=== PATIENT | female | born 1935 | race Caucasian/White ===

== ENCOUNTER 2016-12-28 14:11 | Inpatient (IN) | payer MEDICARE, OTHER ==
[~2016-12-28] VITALS: Ht 170.2 cm; Wt 79.8 kg
[~2016-12-28 14:11] MED LIST: AMLODIPINE PO; HCTZ PO
[2016-12-28] MEDS ORDERED: KETOROLAC 30MG/ML VIAL IV STA (15:32)
[2016-12-28] MEDS ORDERED: VANCOMYCIN 1 G PREMIX 200 ML IV ONE (15:45)
[2016-12-28] MEDS ORDERED: PIPERACILLIN/TAZ 3.375G PREMIX 50 ML IV ONE (15:45)
[2016-12-28 16:15] LABS: BASOPHILS % 0.5 % (0.0-2.0); EOSINOPHILS % 0.4 % (0.0-5.0); HEMATOCRIT. 43.1 % (36.0-48.0); HEMOGLOBIN. 14.9 g/dL (12.0-16.0); LYMPHOCYTES % 17.3 % (20.0-50.0); MEAN CORPUSCULAR HEMOGLOBIN 29.6 pg (28.0-32.0); MEAN CORPUSCULAR VOLUME 85.7 fL (81.0-99.0); MEAN PLATELET VOLUME 8.3 fl (7.4-10.4); MONOCYTES % 14.2 % (2.0-8.0); NEUTROPHILS % 67.6 % (40.0-76.0); PLATELET 229 x1000/uL (130-400); RED BLOOD CELL COUNT 5.03 mill/uL (4.2-5.4); RED CELL DISTRIBUTION WIDTH 13.4 % (11.6-14.6)
[2016-12-28 16:19] LABS: CHLORIDE 107 mEq/L (98-107)
[2016-12-28 16:20] LABS: INR 1.1; PROTHROMBIN TIME 11.4 sec (9.4-11.6)
[2016-12-28 16:27] LABS: CARBON DIOXIDE 28 mEq/L (21-32)
[2016-12-28] MEDS ORDERED: SODIUM CHLORIDE 0.9% 1000ML BAG (SEPSIS BOLUS) IV ONE (17:30)
[2016-12-28 17:50] LABS: CLARITY URINE TURBID (CLEAR); COLOR URINE YELLOW (YELLOW); GLUCOSE URINE NEGATIVE (NEGATIVE); KETONES URINE NEGATIVE (NEGATIVE); LEUKOCYTE ESTERASE URINE 2+ (NEGATIVE); NITRITE URINE NEGATIVE (NEGATIVE); OCCULT BLOOD URINE 2+ (NEGATIVE); PROTEIN URINE 3+ (NEGATIVE); SPECIFIC GRAVITY URINE 1.017 (1.005-1.030); UROBILINOGEN URINE 0.2 E.U./dL (0.2-1.0)
[2016-12-28] MEDS ORDERED: LORAZEPAM 2MG/ML CPJ IV ONE ×2 (18:15→19:30)
[2016-12-28] MEDS ORDERED: ZIPRASIDONE MESYLATE 20MG/VIAL IM ONE (19:30)
[2016-12-28] MEDS ORDERED: OXCA300T4 PO (22:44)
[2016-12-28] MEDS ORDERED: AMLO10TA80 PO (22:44)
[2016-12-28] MEDS ORDERED: RIVA1PAT9 TD (22:44)
[2016-12-28] MEDS ORDERED: FISH1CAP34 PO (22:44)
[2016-12-28] MEDS ORDERED: ATOR20TA65 PO (22:44)
[2016-12-28] MEDS ORDERED: FERR325T6 PO (22:44)
[2016-12-28] MEDS ORDERED: OMEP20CA10 PO (22:44)
[2016-12-28] MEDS ORDERED: METO100T9 PO (22:44)
[2016-12-28 23:00] VITALS: BP 98/72
[2016-12-29] VITALS: BP 149/77
[2016-12-29] MEDS ORDERED: LORAZEPAM 2MG/ML CPJ IV PRN (00:45)
[2016-12-29] MEDS ORDERED: ACETAMINOPHEN 325MG TABLET PO PRN (00:45)
[2016-12-29] MEDS: OLANZAPINE 10MG TABLET PO SCH ×2 (01:22→09:47)
[2016-12-29] MEDS ORDERED: LEVOFLOXACIN 500MG PREMIX 100 ML IV NR (03:00)
[2016-12-29 04:00] VITALS: BP 146/96
[2016-12-29] MEDS: SODIUM CHLORIDE 0.9% INJ 3ML FLUSH IVF SCH ×3 (05:30→21:22)
[2016-12-29 07:29] LABS: BASOPHILS % 0.5 % (0.0-2.0); EOSINOPHILS % 0.3 % (0.0-5.0); HEMOGLOBIN. 14.8 g/dL (12.0-16.0); LYMPHOCYTES % 7.6 % (20.0-50.0); MEAN CORPUSCULAR HEMOGLOBIN 29.6 pg (28.0-32.0); MEAN CORPUSCULAR VOLUME 85.8 fL (81.0-99.0); MEAN PLATELET VOLUME 8.7 fl (7.4-10.4); MONOCYTES % 6.7 % (2.0-8.0); NEUTROPHILS % 84.9 % (40.0-76.0); PLATELET 187 x1000/uL (130-400); RED BLOOD CELL COUNT 5.01 mill/uL (4.2-5.4); RED CELL DISTRIBUTION WIDTH 13.2 % (11.6-14.6)
[2016-12-29 08:00] VITALS: BP 147/81
[2016-12-29 08:08] LABS: VITAMIN B12 SERUM 334 pg/mL (211-911)
[2016-12-29 08:10] LABS: TROPONIN I 0.04 ng/mL (0.00-0.04)
[2016-12-29] MEDS: ASPIRIN 325MG EC TABLET PO SCH (09:47)
[2016-12-29] MEDS: OMEPRAZOLE 20MG CAPSULE EXTENDED RELEASE PO SCH (09:47)
[2016-12-29] MEDS: OXCARBAZEPINE 300MG TABLET PO SCH (09:48)
[2016-12-29] MEDS: METOPROLOL TARTRATE 50MG TABLET PO SCH ×2 (09:48→21:22)
[2016-12-29] MEDS: AMLODIPINE 10MG TABLET PO SCH (09:48)
[2016-12-29] MEDS: ENOXAPARIN 40MG/0.4ML SYR SUBCUT SCH (09:48)
[2016-12-29 12:00] VITALS: BP 135/65
[2016-12-29] MEDS: CEFTRIAXONE 1 G PREMIX 50 ML IV SCH (15:50)
[2016-12-29 16:00] VITALS: BP 148/88
[2016-12-29 20:00] VITALS: BP 147/93
[2016-12-29] MEDS: ATORVASTATIN CALCIUM 20MG TABLET PO SCH (21:17)
[2016-12-30] VITALS: BP 152/71
[2016-12-30] MEDS ORDERED: LEVOFLOXACIN 250MG PREMIX 50 ML IV SCH (03:00)
[2016-12-30 04:00] VITALS: BP 136/77
[2016-12-30] MEDS: SODIUM CHLORIDE 0.9% INJ 3ML FLUSH IVF SCH ×2 (05:36→14:45)
[2016-12-30 05:39] LABS: HEMATOCRIT. 46.6 % (36.0-48.0); HEMOGLOBIN. 15.8 g/dL (12.0-16.0); MEAN CORPUSCULAR HEMOGLOBIN 29.3 pg (28.0-32.0); MEAN CORPUSCULAR VOLUME 86.5 fL (81.0-99.0); MEAN PLATELET VOLUME 8.6 fl (7.4-10.4); PLATELET 215 x1000/uL (130-400); RED BLOOD CELL COUNT 5.38 mill/uL (4.2-5.4); RED CELL DISTRIBUTION WIDTH 13.5 % (11.6-14.6)
[2016-12-30 08:00] VITALS: BP 151/94
[2016-12-30] MEDS: AMLODIPINE 10MG TABLET PO SCH (09:54)
[2016-12-30] MEDS: ENOXAPARIN 40MG/0.4ML SYR SUBCUT SCH (09:54)
[2016-12-30] MEDS: METOPROLOL TARTRATE 50MG TABLET PO SCH ×2 (09:54→21:26)
[2016-12-30] MEDS: ASPIRIN 325MG EC TABLET PO SCH (09:54)
[2016-12-30] MEDS: OMEPRAZOLE 20MG CAPSULE EXTENDED RELEASE PO SCH (09:54)
[2016-12-30] MEDS: OLANZAPINE 5MG TABLET PO SCH (09:54)
[2016-12-30] MEDS: OXCARBAZEPINE 300MG TABLET PO SCH (09:54)
[2016-12-30 12:00] VITALS: BP 130/61
[2016-12-30 13:10] LABS: PLATELET ESTIMATE NORMAL
[2016-12-30] MEDS: CEFTRIAXONE 1 G PREMIX 50 ML IV SCH (15:06)
[2016-12-30 16:00] VITALS: BP 131/66
[2016-12-30 20:00] VITALS: BP 142/67
[2016-12-30] MEDS: DEXT 5%/0.45% NACL 1000ML 1,000 ML IV SCH (21:25)
[2016-12-30] MEDS: ATORVASTATIN CALCIUM 20MG TABLET PO SCH (21:26)
[2016-12-30 22:29] LABS: BASOPHILS % 0.4 % (0.0-2.0); EOSINOPHILS % 3.5 % (0.0-5.0); HEMATOCRIT. 40.8 % (36.0-48.0); LYMPHOCYTES % 16.8 % (20.0-50.0); MEAN CORPUSCULAR HEMOGLOBIN 29.2 pg (28.0-32.0); MEAN CORPUSCULAR VOLUME 85.4 fL (81.0-99.0); MEAN PLATELET VOLUME 8.9 fl (7.4-10.4); MONOCYTES % 6.7 % (2.0-8.0); NEUTROPHILS % 72.6 % (40.0-76.0); PLATELET 212 x1000/uL (130-400); RED BLOOD CELL COUNT 4.79 mill/uL (4.2-5.4); RED CELL DISTRIBUTION WIDTH 13.6 % (11.6-14.6)
[2016-12-31] VITALS: BP 109/60
[2016-12-31 04:00] VITALS: BP 146/70
[2016-12-31] MEDS ORDERED: FAMOTIDINE 20MG TABLET PO SCH (07:40)
[2016-12-31 08:00] VITALS: BP 158/94
[2016-12-31] MEDS: METOPROLOL TARTRATE 50MG TABLET PO SCH (08:56)
[2016-12-31] MEDS: ASPIRIN 325MG EC TABLET PO SCH (08:57)
[2016-12-31] MEDS: AMLODIPINE 10MG TABLET PO SCH (08:57)
[2016-12-31] MEDS: OXCARBAZEPINE 300MG TABLET PO SCH (08:57)
[2016-12-31] MEDS: OLANZAPINE 5MG TABLET PO SCH (08:57)
[2016-12-31] MEDS ORDERED: CEFTRIAXONE 1 G PREMIX 50 ML IV SCH (09:00)
[2016-12-31] MEDS ORDERED: ENOXAPARIN 30MG/0.3ML SYR SUBCUT SCH (09:00)
[2016-12-31 12:00] VITALS: BP_SYST 138; BP_SYST 143; BP_DIAS 61; BP_DIAS 72
[2016-12-31] MEDS: DEXT 5%/0.45% NACL 1000ML 1,000 ML IV SCH (12:00)
[2016-12-31 12:54] LABS: HEMATOCRIT. 45.2 % (36.0-48.0); HEMOGLOBIN. 15.5 g/dL (12.0-16.0); MEAN CORPUSCULAR HEMOGLOBIN 29.2 pg (28.0-32.0); MEAN PLATELET VOLUME 8.6 fl (7.4-10.4); PLATELET 271 x1000/uL (130-400); RED BLOOD CELL COUNT 5.32 mill/uL (4.2-5.4); RED CELL DISTRIBUTION WIDTH 13.2 % (11.6-14.6)
[2016-12-31 14:44] LABS: BG BASE EXCESS -3.8 mmol/L (-2.0-2.0); BG HCO3 ACT 18.1 mmol/L (22.0-26.0); BG METHEMOGLOBIN 0.2 % (0.0-1.5); BG OXYGEN SATURATION 94.9 % (92.0-98.5); BG OXYHEMOGLOBIN 93.8 % (94.0-97.0); BG PCO2 26.1 mmHg (35.0-45.0); BG PH 7.459 (7.350-7.450); BG PO2 70.3 mmHg (75.0-100.0); BG SAMPLE SITE RIGHT BRACHIAL; BG TOTAL HEMOGLOBIN 15.9 g/dL (12.0-18.0); BG VENT MODE ROOM AIR
[2016-12-31 15:04] LABS: CREATINE KINASE 154 IU/L (26-192)
[2016-12-31] MEDS: CITRIC ACID/SODIUM CITRATE SOLN 30ML UDC PO SCH ×2 (15:43→17:25)
[2016-12-31 16:27] LABS: PLATELET ESTIMATE NORMAL
[2016-12-31 16:30] VITALS: BP 130/69
[2016-12-31 16:44] VITALS: BP 130/69
[2016-12-31 18:14] LABS: CLARITY URINE TURBID (CLEAR); COLOR URINE DARK YELLOW (YELLOW); GLUCOSE URINE NEGATIVE (NEGATIVE); KETONES URINE 1+ (NEGATIVE); LEUKOCYTE ESTERASE URINE 3+ (NEGATIVE); NITRITE URINE NEGATIVE (NEGATIVE); OCCULT BLOOD URINE 3+ (NEGATIVE); PROTEIN URINE 2+ (NEGATIVE); SPECIFIC GRAVITY URINE 1.022 (1.005-1.030); UROBILINOGEN URINE 0.2 E.U./dL (0.2-1.0)
== END 2016-12-31 18:04 | disposition short-term general hospital (02) | DRG 683 ==
LOC: ER 14:50 → OBSVTOIN 17:59 → INTOOBSV 17:59 → 7WST 17:59 → ENRESERV 18:42 → 7WST 23:59
PROVIDERS: ADMIT Ophthalmology; ATTEND Ophthalmology
DX: N17.9 Acute kidney failure, unspecified (principal); E87.2 Acidosis; F03.91 Unspecified dementia, unspecified severity, with behavioral disturbance; E11.22 Type 2 diabetes mellitus with diabetic chronic kidney disease; N39.0 Urinary tract infection, site not specified; I48.91 Unspecified atrial fibrillation; N18.2 Chronic kidney disease, stage 2 (mild); E78.00 Pure hypercholesterolemia, unspecified; E78.5 Hyperlipidemia, unspecified; M19.042 Primary osteoarthritis, left hand; H91.90 Unspecified hearing loss, unspecified ear; I12.9 Hypertensive chronic kidney disease with stage 1 through stage 4 chronic kidney disease, or unspecified chronic kidney disease; Z87.442 Personal history of urinary calculi; Z79.899 Other long term (current) drug therapy; Z90.710 Acquired absence of both cervix and uterus; Z90.49 Acquired absence of other specified parts of digestive tract
CPT/HCPCS: 36415; 36600; 70450; 71010; 73110; 73130; 76770; 80048; 80053; 80061; 81001; 82375; 82550; 82607; 82805; 82962; 83605; 84443; 84484; 84550; 85025; 85379; 85610; 85651; 87040; 87077; 87086; 87186; 93005; 93306; 96365; 96366; 96368; 96375; 99285; J0696; J1650; J1885; J1956; J2060; J2543; J3370; J3490; J7030; J7050; A4315